=== PATIENT | male | born 1990 | race Caucasian/White ===

== ENCOUNTER → 2020-01-03 | Outpatient (CLI) | payer BC, OTHER ==
[~2020-01-03] MED LIST: BYSTOLIC10 MG PO; RAMIPRIL5 MG PO
== END ==
LOC: DX 14:39 → EDSTATUS 01-07 08:00
PROVIDERS: ATTEND Surgery
DX: Z01.812 Encounter for preprocedural laboratory examination (principal); Z20.828 Contact with and (suspected) exposure to other viral communicable diseases; Z01.818 Encounter for other preprocedural examination; K21.9 Gastro-esophageal reflux disease without esophagitis
CPT/HCPCS: 93005; U0002